=== PATIENT | female | born 1940 | race American Indian/Alaskan Native ===

== ENCOUNTER 2017-05-31 14:05 | Inpatient (IN) | payer MEDICARE ==
[2017-05-31 15:04] LABS: Basophils % (Auto) 0.8 % (0.0-1.8); Eosinophils % (Auto) 2.2 % (0.0-4.3); Hemoglobin 11.5 gm/dl (10.1-14.3); Mean Corpuscular HGB Conc 31 % (30-34); Mean Corpuscular Hemoglobin 27 pg (28-32); Mean Corpuscular Volume 86 fl (79-97); Platelet Count 326 K/mm3 (140-440); Red Blood Count 4.32 M/mm3 (3.65-5.03); Red Cell Distribution Width 14.8 % (13.2-15.2)
[2017-05-31 15:26] LABS: Calcium 8.5 mg/dL (8.4-10.2); Chloride 99.8 mmol/L (98-107); Potassium 4.5 mmol/L (3.6-5.0)
[2017-05-31] MEDS ORDERED: D50W (25GM) Vial 50 ML IV ONE (16:25)
[2017-05-31 16:32] LABS: Bacteria,Urine 1+ /HPF (Negative); Bilirubin,Urine NEG (Negative); Blood,Urine NEG (Negative); Ketones,Urine NEG (Negative); Leukocyte Esterase,Urine LG (Negative); Nitrite,Urine NEG (Negative); Protein,Urine <15 mg/dL mg/dL (Negative); Urobilinogen,Urine < 2.0 mg/dL (<2.0)
[2017-05-31] MEDS ORDERED: D50W (25GM) Syringe IV ONE (16:35)
[2017-05-31] MEDS ORDERED: NORCO 5/325 PO ONE (16:49)
[2017-05-31] MEDS ORDERED: CATAPRES PO ONE (16:50)
[2017-05-31] MEDS ORDERED: D50W (25GM) Vial IV ONE (17:00)
--- NOTE | 2017-05-31 17:04 | Emergency Department Report ---
HPI - General Chief Complaint: Hypoglycemia Time Seen by Provider: 05/31/17 16:10 - HPI HPI: Room 25 The patient is a 76-year-old female presenting with a chief complaint of weakness. The patient states her symptoms began yesterday with weakness and bowel incontinence. The patient says yesterday her glucose was not checked because no one knew how to operate her glucometer. Today the patient's weakness persisted and she again had an episode of bowel incontinence EMS was called and the patient was felt to be hypoglycemic at 24. Patient was administered D50 by EMS and transported to the ED. Patient states she's been taking her diabetes medication from us his metformin and Lantus) as prescribed and yesterday had a normal diet. Today the patient had not eaten lunch. The patient's only complaints currently are pain in both knees from her chronic arthritis. The patient gives her pain a score of 8/10 Location: Mental state Duration: [See above] Quality: Weakness, hypoglycemia Severity: 24 Modifying factors: [see above] Context: [see above] Mode of transportation: [not driving] ED Past Medical Hx - Past Medical History Previous Medical History?: Yes Hx Hypertension: Yes Hx CVA: Yes Hx Diabetes: Yes Additional medical history: blindness, high cholesterol - Surgical History Past Surgical History?: No - Family History Family history: no significant - Social History Smoking Status: Former Smoker (none 40 years) Substance Use Type: None ED Review of Systems ROS: Stated complaint: LOW BLOOD SUGAR Other details as noted in HPI Constitutional: weakness Eyes: denies: eye pain Cardiovascular: denies: chest pain Gastrointestinal: denies: abdominal pain Genitourinary: denies: urgency Musculoskeletal: arthralgia Neurological: confusion. denies: headache Physical Exam - Physical Exam Vital Signs: Vital Signs 05/31/17 05/31/17 14:36 16:33 Temperature 98.7 F Pulse Rate 79 86 Respiratory 18 14 Rate Blood Pressure 219/98 [Left] Blood Pressure 205/83 [Right] O2 Sat by Pulse 99 100 Oximetry Physical Exam: GENERAL: The patient is well-developed well-nourished female lying on stretcher not appearing to be in acute distress. [] HEENT: Normocephalic. Atraumatic. Patient has moist mucous membranes. NECK: Supple. Trachea midline CHEST/LUNGS: Clear to auscultation. There is no respiratory distress noted. HEART/CARDIOVASCULAR: Regular. There is no tachycardia. There is no gallop rub or murmur. ABDOMEN: Abdomen is soft, nontender. Patient has normal bowel sounds. There is no abdominal distention. SKIN: There is no rash. There is no diaphoresis. NEURO: The patient is awake, alert, and oriented. The patient is cooperative. The patient has normal speech MUSCULOSKELETAL: There is no evidence of acute injury. ED Course Vital Signs 05/31/17 05/31/17 14:36 16:33 Temperature 98.7 F Pulse Rate 79 86 Respiratory 18 14 Rate Blood Pressure 219/98 [Left] Blood Pressure 205/83 [Right] O2 Sat by Pulse 99 100 Oximetry ED Medical Decision Making - Lab Data Result diagrams: 05/31/17 14:41 05/31/17 14:41 Laboratory Tests 05/31/17 05/31/17 05/31/17 14:41 14:41 16:21 WBC 7.0 RBC 4.32 Hgb 11.5 Hct 37.0 MCV 86 MCH 27 L MCHC 31 RDW 14.8 Plt Count 326 Lymph % (Auto) 28.7 Eddy % (Auto) 6.8 Eos % (Auto) 2.2 Baso % (Auto) 0.8 Lymph # 2.0 Eddy # 0.5 Eos # 0.2 Baso # 0.1 Seg Neutrophils % 61.5 Seg Neutrophils # 4.3 Sodium 136 L Potassium 4.5 Chloride 99.8 Carbon Dioxide 21 L Anion Gap 20 BUN 20 H Creatinine 1.1 Estimated GFR 58 BUN/Creatinine Ratio 18 Glucose 66 POC Glucose < 40 L Calcium 8.5 Urine Color Urine Turbidity Urine pH Ur Specific [place] Urine Protein Urine Glucose (UA) Urine Ketones Urine Blood Urine Nitrite Urine Bilirubin Urine Urobilinogen Ur Leukocyte Esterase Urine WBC (Auto) Urine RBC (Auto) U Epithel Cells (Auto) Urine Bacteria (Auto) 05/31/17 Unknown WBC RBC Hgb Hct MCV MCH MCHC RDW Plt Count Lymph % (Auto) [place] % (Auto) Eos % (Auto) Baso % (Auto) Lymph # Eddy # Eos # Baso # Seg Neutrophils % Seg Neutrophils # Sodium Potassium Chloride Carbon Dioxide Anion Gap BUN Creatinine Estimated GFR BUN/Creatinine Ratio Glucose POC Glucose Calcium Urine Color Yellow Urine Turbidity Clear Urine pH 5.0 Ur Specific [place] 1.003 Urine Protein <15 mg/dl Urine Glucose (UA) Neg Urine Ketones Neg Urine Blood Neg Urine Nitrite Neg Urine Bilirubin Neg Urine Urobilinogen < 2.0 Ur Leukocyte Esterase Lg Urine WBC (Auto) 14.0 H Urine RBC (Auto) 1.0 U Epithel Cells (Auto) 4.0 Urine Bacteria (Auto) 1+ - Differential Diagnosis hypoglycemia Critical care attestation.: If time is entered above; I have spent that time in minutes in the direct care of this critically ill patient, excluding procedure time. ED Disposition Clinical Impression: Hypoglycemia, UTI (urinary tract infection) Disposition: OP ADMIT IP TO THIS HOSP Is pt being admited?: Yes Does the pt Need Aspirin: No Condition: Fair Referrals: PRIMARY CARE, [Primary Care Provider] - 3-5 Days Time of Disposition: 17:07 (hospitalist paged (Dr Winslow))
[2017-05-31] MEDS ORDERED: BUTT PASTE/LIDOCAINE TP ONE (17:44)
[2017-05-31] MEDS ORDERED: DULCOLAX PR PRN (17:49)
[2017-05-31] MEDS ORDERED: MILK OF MAGNESIA PO PRN (17:49)
[2017-05-31] MEDS ORDERED: ZOFRAN IV PRN (17:49)
[2017-05-31] MEDS ORDERED: PROVENTIL IH PRN (17:49)
--- NOTE | 2017-05-31 17:49 | History and Physical Report ---
History of Present Illness Chief complaint: I feel weak History of present illness: 76 YO Female with HTN, CVA, DM, HLD, Legal Blindness presents to ED for evaluation. Pt states that she has experienced feeling weak for the past day with worsening symptoms over the past 8 hours. Today the patient states that her weakness got worse, and she also experienced an episode of bowel incontinence. EMS was called and upon arrival, the patient was found to be hypoglycemic at 24. Patient was administered D50 by EMS and transported to the ED. The patient was seen and evaluated in ED and found a systolic blood pressure in the 220's, as well as a UTI. Pt treated with Antihypertensive therapy, as well as IV abx. Pt denies fever, chills, CP, Palpitations, NVD, Syncope, BRBPR, recent ill contacts. Past History Past Medical History: diabetes, hypertension, hyperlipidemia, stroke Past Surgical History: No surgical history (reviewed) Social history: . denies: smoking, alcohol abuse, prescription drug abuse Family history: diabetes, hypertension Medications and Allergies Allergies Allergy/AdvReac Type Severity Reaction Status Date / Time No Known Allergies Allergy Unverified 05/31/17 14:24 Review of Systems All systems: negative Constitutional: weakness, no weight loss, no weight gain, no fever, no chills Ears, nose, mouth and throat: no ear pain, no ear discharge, no tinnitis, no decreased hearing, no nose pain, no nasal congestion Breasts: no change in shape, no swelling, no mass Cardiovascular: no chest pain, no orthopnea, no palpitations, no rapid/ irregular heart beat, no edema Gastrointestinal: no nausea, no vomiting, no diarrhea, no constipation Genitourinary Female: no pelvic pain, no flank pain, no menorrhagia, no dysuria , no urinary frequency Rectal: no pain, no incontinence, no bleeding Musculoskeletal: no neck stiffness, no neck pain, no shooting arm pain, no arm numbness/tingling, no low back pain Integumentary: no rash, no pruritis, no redness, no sores, no wounds, no jaundice Neurological: weakness, no transient paralysis, no paralysis, no parathesias, no numbness, no tingling Psychiatric: no memory loss, no change in sleep habits, no sleep disturbances, no insomnia, no hypersomnia, no change in appetite, no change in libido Endocrine: no cold intolerance, no heat intolerance, no polyphagia, no excessive thirst, no polydipsia, no polyuria Hematologic/Lymphatic: no easy bruising, no easy bleeding Allergic/Immunologic: no urticaria, no allergic rhinitis, no wheezing Exam - Constitutional Vitals: Temp Pulse Resp BP Pulse Ox 98.7 F 90 14 221/95 100 05/31/17 14:36 05/31/17 17:08 05/31/17 16:33 05/31/17 17:08 05/31/17 16:33 General appearance: Present: mild distress - EENT Eyes: Present: PERRL ENT: hearing intact, clear oral mucosa - Neck Neck: Present: supple, normal ROM - Respiratory Respiratory effort: normal Respiratory: bilateral: CTA - Cardiovascular Heart Sounds: Present: S1 & S2. Absent: rub, click - Extremities Extremities: pulses symmetrical, No edema Peripheral Pulses: within normal limits - Abdominal General gastrointestinal: Present: soft, non-tender, non-distended, normal bowel sounds Female genitourinary: Present: normal - Integumentary Integumentary: Present: clear, warm, dry - Musculoskeletal Musculoskeletal: generalized weakness - Psychiatric Psychiatric: appropriate mood/affect, intact judgment & insight Results - Labs CBC & Chem 7: 05/31/17 14:41 05/31/17 14:41 Labs: Abnormal lab results 05/31/17 05/31/17 05/31/17 Range/Units 14:41 14:41 16:21 MCH 27 L (28-32) pg Sodium 136 L (137-145) mmol/L Carbon Dioxide 21 L (22-30) mmol/L BUN 20 H (7-17) mg/dL POC Glucose < 40 L (70-105) Urine WBC (Auto) (0.0-6.0) /HPF 05/31/17 05/31/17 Range/Units 17:09 Unknown MCH (28-32) pg Sodium (137-145) mmol/L Carbon Dioxide (22-30) mmol/L BUN (7-17) mg/dL POC Glucose 154 H (70-105) Urine WBC (Auto) 14.0 H (0.0-6.0) /HPF Assessment and Plan - Patient Problems (1) UTI (urinary tract infection) Current Visit: Yes Status: Acute Plan to address problem: IV abx, IVF, supportive care, (2) Hypertensive urgency, malignant Current Visit: Yes Status: Acute Plan to address problem: Monitor bp q shift, IV hydralazine, Goal systolic blood pressure overnight 165- 185. (3) Hypoglycemia Current Visit: Yes Status: Acute Plan to address problem: resolved, Pt s/p d50 administration, accu check (4) DVT prophylaxis Current Visit: Yes Status: Acute
[2017-05-31] MEDS ORDERED: APRESOLINE ONE (18:53)
[2017-05-31] MEDS: APRESOLINE IV PRN (18:57)
[2017-05-31] MEDS: TYLENOL PO PRN (23:12)
[2017-05-31] MEDS: PEPCID PO SCH (23:13)
[2017-06-01] MEDS: APRESOLINE IV PRN (03:30)
[2017-06-01] MEDS: TYLENOL PO PRN (03:48)
[2017-06-01] MEDS ORDERED: LISINOPRIL 40 MG PO SCH (10:00)
[2017-06-01] MEDS ORDERED: PEPCID PO SCH (10:00)
[2017-06-01] MEDS: NEURONTIN PO SCH (11:00)
[2017-06-01] MEDS: NORVASC PO SCH (11:00)
[2017-06-01] MEDS: PLAVIX PO SCH (11:00)
[2017-06-01] MEDS: PEPCID PO SCH ×2 (11:00→22:20)
[2017-06-01] MEDS: ZESTRIL PO SCH (11:00)
[2017-06-01] MEDS: CATAPRES PO SCH ×2 (11:00→22:20)
[2017-06-01] MEDS: GLUCOPHAGE PO SCH ×2 (11:30→17:18)
[2017-06-01] MEDS: FLONASE NS SCH (11:49)
[2017-06-01] MEDS: NOVOLOG SUB-Q SCH ×2 (12:57→17:18)
--- NOTE | 2017-06-01 13:58 | Progress Note ---
Assessment and Plan Assessment and plan: 76-year-old -[place] female with past medical history significant for diabetes mellitus type 2, hypertension, hyperlipidemia, leg blindness presented to the emergency department with generalized weakness. 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 Legally blind The patient appeared well nourished and normally developed. Vital signs as documented. Head exam is unremarkable. No scleral icterus . Neck is without jugular venous distension, thyromegaly, or carotid bruits. Lungs are clear to auscultation. Cardiac exam reveals regular rate and Rhythm. First and second heart sounds normal. No murmurs, rubs or gallops. Abdominal exam reveals normal bowel sounds, no masses, no organomegaly and no aortic enlargement. Extremities are nonedematous and both femoral and pedal pulses are normal. INFORMATION DEVELOPER: Alert and oriented 3. No focal weakness. - Constitutional Vitals: Temp Pulse Resp BP Pulse Ox 98.9 F 99 H 20 187/74 99 06/01/17 08:18 06/01/17 11:00 06/01/17 08:18 06/01/17 11:00 06/01/17 09:21 General appearance: Present: mild distress Results - Labs CBC & Chem 7: 05/31/17 14:41 05/31/17 14:41 Labs: Laboratory Last Values WBC 7.0 K/mm3 (4.5-11.0) 05/31/17 14:41 RBC 4.32 M/mm3 (3.65-5.03) 05/31/17 14:41 Hgb 11.5 gm/dl (10.1-14.3) 05/31/17 14:41 Hct 37.0 % (30.3-42.9) 05/31/17 14:41 MCV 86 fl (79-97) 05/31/17 14:41 MCH 27 pg (28-32) L 05/31/17 14:41 MCHC 31 % (30-34) 05/31/17 14:41 RDW 14.8 % (13.2-15.2) 05/31/17 14:41 Plt Count 326 K/mm3 (140-440) 05/31/17 14:41 Lymph % (Auto) 28.7 % (13.4-35.0) 05/31/17 14:41 [place] % (Auto) 6.8 % (0.0-7.3) 05/31/17 14:41 Eos % (Auto) 2.2 % (0.0-4.3) 05/31/17 14:41 Baso % (Auto) 0.8 % (0.0-1.8) 05/31/17 14:41 Lymph # 2.0 K/mm3 (1.2-5.4) 05/31/17 14:41 [place] # 0.5 K/mm3 (0.0-0.8) 05/31/17 14:41 Eos # 0.2 K/mm3 (0.0-0.4) 05/31/17 14:41 Baso # 0.1 K/mm3 (0.0-0.1) 05/31/17 14:41 Seg Neutrophils % 61.5 % (40.0-70.0) 05/31/17 14:41 Seg Neutrophils # 4.3 K/mm3 (1.8-7.7) 05/31/17 14:41 Sodium 136 mmol/L (137-145) L 05/31/17 14:41 Potassium 4.5 mmol/L (3.6-5.0) 05/31/17 14:41 Chloride 99.8 mmol/L (98-107) 05/31/17 14:41 Carbon Dioxide 21 mmol/L (22-30) L 05/31/17 14:41 Anion Gap 20 mmol/L 05/31/17 14:41 BUN 20 mg/dL (7-17) H 05/31/17 14:41 Creatinine 1.1 mg/dL (0.7-1.2) 05/31/17 14:41 Estimated GFR 58 ml/min 05/31/17 14:41 BUN/Creatinine Ratio 18 % 05/31/17 14:41 Glucose 66 mg/dL (65-100) 05/31/17 14:41 POC Glucose 199 (70-105) H 06/01/17 11:50 Calcium 8.5 mg/dL (8.4-10.2) 05/31/17 14:41 Urine Color Yellow (Yellow) 05/31/17 Unknown Urine Turbidity Clear (Clear) 05/31/17 Unknown Urine pH 5.0 (5.0-7.0) 05/31/17 Unknown Ur Specific [place] 1.003 (1.003-1.030) 05/31/17 Unknown Urine Protein <15 mg/dl mg/dL (Negative) 05/31/17 Unknown Urine Glucose (UA) Neg mg/dL (Negative) 05/31/17 Unknown Urine Ketones Neg mg/dL (Negative) 05/31/17 Unknown Urine Blood Neg (Negative) 05/31/17 Unknown Urine Nitrite Neg (Negative) 05/31/17 Unknown Urine Bilirubin Neg (Negative) 05/31/17 Unknown Urine Urobilinogen < 2.0 mg/dL (<2.0) 05/31/17 Unknown Ur Leukocyte Esterase Lg (Negative) 05/31/17 Unknown Urine WBC (Auto) 14.0 /HPF (0.0-6.0) H 05/31/17 Unknown Urine RBC (Auto) 1.0 /HPF (0.0-6.0) 05/31/17 Unknown U Epithel Cells (Auto) 4.0 /HPF (0-13.0) 05/31/17 Unknown Urine Bacteria (Auto) 1+ /HPF (Negative) 05/31/17 Unknown
[2017-06-01] MEDS: NORCO 5/325 PO PRN ×2 (14:05→19:11)
[2017-06-01] MEDS ORDERED: LOVENOX SUB-Q SCH (22:00)
[2017-06-02] MEDS: NORCO 5/325 PO PRN (04:43)
[2017-06-02] MEDS: NOVOLOG SUB-Q SCH ×2 (04:49→08:52)
[2017-06-02 06:00] LABS: Calcium 8.6 mg/dL (8.4-10.2); Chloride 104.6 mmol/L (98-107); Potassium 5.1 mmol/L (3.6-5.0)
[2017-06-02] MEDS: GLUCOPHAGE PO SCH (08:49)
[2017-06-02 09:26] VITALS: BP 195/61
[2017-06-02] MEDS: PEPCID PO SCH (09:28)
[2017-06-02] MEDS: NORVASC PO SCH (09:28)
[2017-06-02] MEDS: NEURONTIN PO SCH (09:28)
[2017-06-02] MEDS: PLAVIX PO SCH (09:28)
[2017-06-02] MEDS: ZESTRIL PO SCH (09:29)
[2017-06-02] MEDS: CATAPRES PO SCH (09:29)
[2017-06-02] MEDS: FLONASE NS SCH (09:30)
--- NOTE | 2017-06-02 10:45 | Discharge Summary ---
Providers - Providers Date of Admission: 05/31/17 17:49 Attending physician: PEDRO MONTOYA MD Primary care physician: TAPE CUTTER Hospitalization Reason for admission: Hypoglycemia, hypertensive urgency Condition: Stable Hospital course: 76 YO Female with HTN, CVA, DM, HLD, Legal Blindness presents to ED for evaluation. Pt states that she has experienced feeling weak for the past day with worsening symptoms over the past 8 hours. Today the patient states that her weakness got worse, and she also experienced an episode of bowel incontinence. EMS was called and upon arrival, the patient was found to be hypoglycemic at 24. Patient was administered D50 by EMS and transported to the ED. The patient was seen and evaluated in ED and found a systolic blood pressure in the 220's, as well as a UTI. Pt treated with Antihypertensive therapy, as well as IV abx. Pt denies fever, chills, CP, Palpitations, NVD, Syncope, BRBPR, recent ill contacts. Patient was admitted to the floor and her blood pressure medications were restarted and controlled. Hypoglycemia was corrected and patient mentation was improved. I have discussed the management plan with the daughter and the patient. Patient was taking glipizide, metformin and insulin. The cause of hypoglycemia was glipizide and I have advised the patient to stop glipizide, decrease her dose of Lantus from 15 units daily at bedtime to 10 units daily at bedtime. Patient and daughter understood the management plan and discharged home. Patient was hemodynamically stable at the time of discharge. Patient's concerns and questions were addressed at the bedside. Disposition: [id number] HOME UNDER HOME [facility] Time spent for discharge: 31 minutes - Discharge Diagnoses (1) Hypertensive urgency, malignant Status: Acute (2) Hypoglycemia Status: Acute (3) UTI (urinary tract infection) Status: Acute Core Measure Documentation - Palliative Care Palliative Care/ Comfort Measures: Not Applicable - Core Measures Any of the following diagnoses?: none Exam - Physical Exam Narrative exam: Not in cardiopulmonary distress. Legally blind The patient appeared well nourished and normally developed. Vital signs as documented. Head exam is unremarkable. No scleral icterus . Neck is without jugular venous distension, thyromegaly, or carotid bruits. Lungs are clear to auscultation. Cardiac exam reveals regular rate and Rhythm. First and second heart sounds normal. No murmurs, rubs or gallops. Abdominal exam reveals normal bowel sounds, no masses, no organomegaly and no aortic enlargement. Extremities are nonedematous and both femoral and pedal pulses are normal. WATER CARTER: Alert and oriented 3. No focal weakness. - Constitutional Vitals: Temp Pulse Resp BP Pulse Ox 98.8 F 76 18 195/61 96 06/02/17 08:23 06/02/17 09:29 06/02/17 08:23 06/02/17 09:29 06/02/17 08:23 Plan Activity: advance as tolerated Weight Bearing Status: Full Weight Bearing Diet: low cholesterol, low salt, diabetic Follow up with: PRIMARY CARE, [Primary Care Provider] - 3-5 Days
--- NOTE | 2017-06-06 12:40 | Query-Altered Level of Consc. ---
Alexus Benitez Linda Date: 06/06/17 Speech Assistant/CDS: Benjacarlin / Silverio Phone#:[phone] Exercise your independent professional judgment when responding to this query. Questions asked do not imply a particular answer is desired or expected. We greatly appreciate your clarification on this issue. Clinical Documentation States: 77 year old female was admitted on 05/31/17. The discharge summary (Dr. Mckeon) states " Reason for admission: Hypoglycemia , hypertensive urgency - Discharge Diagnoses (2) Hypoglycemia Hypoglycemia was corrected and patient mentation was improved " The ED documentation (Dr. Laureano) states " Neurological: confusion. denies: headache " Please provide an appropriate diagnosis clarifying the Etiology and Acuity of this clinical scenario: [ x] Metabolic Encephalopathy [ ] Toxic Encephalopathy [ ] Toxic - Metabolic Encephalopathy [ ] Septic Encephalopathy with Sepsis [ ] Septic Encephalopathy without Sepsis [ ] Acute Hepatic Encephalopathy [ ] Subacute Hepatic Encephalopathy [ ] Encephalopathy [ ] Other: [ ] Unable To Determine [ ]Comment/Explanation: Present on Admission: [ x] Yes (Y) [ ] Clinically undeterminable (W) [ ] No (N) Please also document response in your Progress Notes and/or Discharge Summary and indicate if the condition was present on admission. STEFANIA
== END 2017-06-02 13:00 | disposition home health service (06) | DRG 637 ==
LOC: ED 14:05 → 2B-ACE 17:49
PROVIDERS: ADMIT Internal Medicine; ATTEND Internal Medicine
DX: E11.649 Type 2 diabetes mellitus with hypoglycemia without coma (principal); G93.41 Metabolic encephalopathy; N39.0 Urinary tract infection, site not specified; I16.0 Hypertensive urgency; E78.5 Hyperlipidemia, unspecified; E78.00 Pure hypercholesterolemia, unspecified; H54.7 Unspecified visual loss; Z86.73 Personal history of transient ischemic attack (TIA), and cerebral infarction without residual deficits; Z83.3 Family history of diabetes mellitus; Z82.49 Family history of ischemic heart disease and other diseases of the circulatory system; Z87.891 Personal history of nicotine dependence; T38.3X5A Adverse effect of insulin and oral hypoglycemic [antidiabetic] drugs, initial encounter
CPT/HCPCS: 36415; 80048; 81001; 82962; 85025; 96374; 99285; A9270-GY; J0360; J1650; J1815